=== PATIENT | female | born 1970 | race Caucasian/White ===

== ENCOUNTER → 2018-05-02 | Outpatient (CLI) | payer OTHER | LOC: M LRY 13:26 | DX: M79.671 Pain in right foot (principal) | CPT/HCPCS: 73630 ==

== ENCOUNTER → 2020-07-26 | Outpatient (CLI) | payer OTHER ==
[~2020-07-26] MED LIST: ZOLO25TA PO
--- NOTE | 2020-07-26 11:39 | ECGEPIP ---
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 Clincal correlation advised Electronically Signed on 07-26-2020 11:39:23 EST by Khurram Underwood
[2020-07-26 11:55] LABS: BASO % 0.7 % (0.0-1.0); EOS # 0.2 10^3/uL (0.0-0.5); EOS % 3.8 % (0.0-3.0); HEMATOCRIT 44.5 % (36.0-47.0); HEMOGLOBIN 14.5 g/dl (12.0-15.5); LYMPH # 1.8 10^3/uL (1.5-5.0); LYMPH % 29.2 % (24.0-44.0); MEAN CORPUSCULAR HEMOGLOBIN 29.8 pg (27.0-33.0); MEAN CORPUSCULAR HGB CONC 32.6 g/dl (32.0-36.5); MEAN CORPUSCULAR VOLUME 91.4 fl (80.0-96.0); MONO # 0.4 10^3/uL (0.0-0.8); MONO % 7.1 % (0.0-5.0); NEUTROPHILS # 3.6 10^3/uL (1.5-8.5); PLATELET COUNT, AUTOMATED 298 10^3/uL (150-450); RED BLOOD COUNT 4.87 10^6/uL (4.00-5.40); WHITE BLOOD COUNT 6.1 10^3/uL (4.0-10.0)
[2020-07-26 12:46] LABS: BLOOD UREA NITROGEN 14 MG/DL (7-18); CALCIUM LEVEL 9.2 MG/DL (8.5-10.1); CARBON DIOXIDE LEVEL 28 MEQ/L (21-32); CHLORIDE LEVEL 110 MEQ/L (98-107); CREATININE FOR GFR 0.73 MG/DL (0.55-1.30); GLOMERULAR FILTRATION RATE > 60.0 (>51); GLUCOSE, FASTING 98 MG/DL (70-100); POTASSIUM SERUM 4.5 MEQ/L (3.5-5.1); SODIUM LEVEL 144 MEQ/L (136-145)
== END ==
LOC: M LAB 11:12
PROVIDERS: ATTEND Podiatrist
DX: Z01.818 Encounter for other preprocedural examination (principal); M20.11 Hallux valgus (acquired), right foot; M79.671 Pain in right foot

== ENCOUNTER → 2020-07-27 | Outpatient (CLI) | payer OTHER | LOC: M LABSMTC 10:36 | PROVIDERS: ATTEND Anesthesiology | DX: Z01.812 Encounter for preprocedural laboratory examination (principal); Z20.822 Contact with and (suspected) exposure to COVID-19 ==

== ENCOUNTER 2020-08-01 05:59 | Day surgery (SDC) | payer OTHER ==
[~2020-08-01] VITALS: Ht 160 cm; Wt 90.3 kg
--- OUTSIDE RECORDS SUMMARY | 2020-08-01 06:02 | CCD ---
Author Author [facility] Organization [facility] Address Unknown Phone Unavailable Care Team Providers Care Petroleum Production Engineer Name Role Phone Fernando, Sara DO Unavailable Unavailable Fernando, Sara DO Unavailable Unavailable Fernando, Sara DO Unavailable Unavailable Fernando, Sara DO Unavailable Unavailable Fernando, Sara DO Unavailable Unavailable Fernando, Sara DO Unavailable Unavailable Fernando, Sara DO Unavailable Unavailable Fernando, Sara DO Unavailable Unavailable Fernando, Sara DO Unavailable Unavailable Fernando, Sara DO Unavailable Unavailable Fernando, Sara DO Unavailable Unavailable Fernando, Sara DO Unavailable Unavailable Fernando, Sara DO Unavailable Unavailable Fernando, Sara DO Unavailable Unavailable Fernando, Sara DO Unavailable Unavailable Fernando, Saar DO Unavailable Unavailable Fernando, Sara DO Unavailable Unavailable Fernando, Sara DO Unavailable Unavailable Fernando, Sara DO Unavailable Unavailable Fernando, Sara DO Unavailable Unavailable Fernando, Sara DO Unavailable Unavailable Fernando, Sara DO Unavailable Unavailable Fernando, Sara DO Unavailable Unavailable Fernando, Sara DO Unavailable Unavailable Fernando, Sara DO Unavailable Unavailable Fernando, Sara DO Unavailable Unavailable Fernando, Sara DO Unavailable Unavailable Fernando, Sara DO Unavailable Unavailable Fernando, Sara DO Unavailable Unavailable Fernando, Sara DO Unavailable Unavailable Fernando, Sara DO Unavailable Unavailable Fernando, Sara DO Unavailable Unavailable Fernando, Sara DO Unavailable Unavailable Fernando, Sara DO Unavailable Unavailable Fernando, Sara DO Unavailable Unavailable Fernando, Sara DO Unavailable Unavailable Fernando, Sara DO Unavailable Unavailable Fernando, Sara DO Unavailable Unavailable Fernando, Sara DO Unavailable Unavailable Fernando, Sara DO Unavailable Unavailable Fernando, Sara DO Unavailable Unavailable Fernando, Sara DO Unavailable Unavailable Fernando, Sara DO Unavailable Unavailable Fernando, Sara DO Unavailable Unavailable Fernando, Sara DO Unavailable Unavailable Fernando, Sara DO Unavailable Unavailable Fernando, Sara DO Unavailable Unavailable Fernando, Sara DO Unavailable Unavailable Fernando, Sara DO Unavailable Unavailable Fernando, Sara DO Unavailable Unavailable Fernando, Sara DO Unavailable Unavailable Fernando, Sara DO Unavailable Unavailable Fernando, Sara DO Unavailable Unavailable Fernando, Sara DO Unavailable Unavailable Fernando, Sara DO Unavailable Unavailable Fernando, Sara DO Unavailable Unavailable Fernando, Sara DO Unavailable Unavailable Fernando, Sara DO Unavailable Unavailable Fernando, Sraa DO Unavailable Unavailable Fernando, Sara DO Unavailable Unavailable Fernando, Sara DO Unavailable Unavailable Fernando, Sara DO Unavailable Unavailable Fernando, Sara DO Unavailable Unavailable Fernando, Sara DO Unavailable Unavailable Fernando, Sara DO Unavailable Unavailable Fernando, Sara DO Unavailable Unavailable Fernando, Sara DO Unavailable Unavailable Fernando, Sara DO Unavailable Unavailable Fernando, Sara DO Unavailable Unavailable Fernando, Sara DO Unavailable Unavailable Fernando, Sara DO Unavailable Unavailable Fernando, Sara DO Unavailable Unavailable Re-disclosure Warning The records that you are about to access may contain information from federally-assisted alcohol or drug abuse programs. If such information is present, then the following federally mandated warning applies: This information has been disclosed to you from records protected by federal confidentiality rules (42 CFR part 2). The federal rules prohibit you from making any further disclosure of this information unless further disclosure is expressly permitted by the written consent of the person to whom it pertains or as otherwise permitted by 42 CFR part 2. A general authorization for the release of medical or other information is NOT sufficient for this purpose. The Federal rules restrict any use of the information to criminally investigate or prosecute any alcohol or drug abuse patient.The records that you are about to access may contain highly sensitive health information, the redisclosure of which is protected by Article 27-F of the [facility] Public Health law. If you continue you may have access to information: Regarding HIV / AIDS; Provided by facilities licensed or operated by the [facility] Office of Mental Health; or Provided by the [facility] Office for People With Developmental Disabilities. If such information is present, then the following [facility] mandated warning applies: This information has been disclosed to you from confidential records which are protected by state law. State law prohibits you from making any further disclosure of this information without the specific written consent of the person to whom it pertains, or as otherwise permitted by law. Any unauthorized further disclosure in violation of state law may result in a fine or care home sentence or both. A general authorization for the release of medical or other information is NOT sufficient authorization for further disc losure. Encounters Encounter Providers Location Date Indications Data Source(s ) Outpatient Attender: Sara Lopes 01/20 09:20:00 AM EDT [facility] ([facility] ) Medications Medication Brand Name Start Date Product Form Dose Route Admi nistrative Instructions Pharmacy Instructions Status Indications Reaction Description Data Source(s) 5-325 mg 07/31/2020 12:00:00 AM EST tablet 20 TAKE 1 OR 2 TABLETS BY MOUTH EVERY 6 HOURS POST OP PAIN MAXIMUM DAILY DOSE = 6 TABLETS TAKE 1 OR 2 TABLETS BY MOUTH EVERY 6 HOURS POST OP PAIN MAXIMUM DAILY DOSE = 6 TABLETS SOLD: 07/31/2020 [facility] 0.05 % 05/23/2020 12:00:00 AM EST solution 50 APPLY TO DRY SCALP TWICE WEEKLY LET SIT FOR 15 MIN THEN RINSE APPLY TO DRY SCALP TWICE WEEKLY LET SIT FOR 15 MIN THEN RINSE SOLD: 05/25/2020 [facility] 25 mg 02/02/2019 12:00:00 AM EDT tablet 30 TAKE ONE TABLET BY MOUTH ONCE DAILY TAKE ONE TABLET BY MOUTH ONCE DAILY SOLD: 06/15/2019 [facility] 25 mg 02/02/2019 12:00:00 AM EDT tablet 30 TAKE ONE TABLET BY MOUTH ONCE DAILY TAKE ONE TABLET BY MOUTH ONCE DAILY SOLD: 07/19/2019 [facility] Insurance Providers Payer name Policy type / Coverage type Policy ID Covered green party ID Covered green party's relationship to scott Policy Scott Plan Information [facility] [id number] SP [id number] [facility] [id number] SP [id number] UMR O [id number] S [id number] [place] (Old) Medigap Part B [id number] Self [id number] Umr (New [place]) Commercial [id number] Self [id number] [employer] (Old) Medigap Part B [id number] Self [id number] [facility] [id number] SP [id number] UMR O [id number] S [id number] ANSI-Commercial [id number] [employer] (Old) Commercial [id number] Self [id number] [employer] PPO O [id number] S [id number] [place] Ppo Commercial [id number] Self [id number] [place] Ppo Commercial [id number] Self [id number] [employer] [id number] SP [id number] Surgeries/Procedures Procedure Description Date Indications Data Source(s) Mammogram 05/21/2020 12:00:00 AM EST [facility] ([facility]) Results ID Date Data Source [id number] 07/27/2020 10:00:00 AM EST [facility] Name Value Range Interpretation Code Description Data Adia rce(s) Supporting Document(s) SARS coronavirus 2 RNA Not Detected [facility] This lab was ordered by [facility] and reported by [facility]. ID Date Data Source [id number] 07/26/2020 11:40:00 AM EST [facility] ([facility]) Name Value Range Interpretation Code Description Data Adia rce(s) Supporting Document(s) Glucose, Fasting 98 mg/dL 70-100 [facility] ([facility]) Creatinine For GFR 0.73 mg/dL 0.55-1.30 [facility] ([facility]) Glomerular Filtration Rate Laboratory test [facility] <content>Units are mL/min/1.73 m2</content>
<content></content>
<content>Chronic Kidney Disease Staging per NKF:</content>
<content></content>
<content>Stage I & II GFR >=60 Normal to Mildly Decreased</content>
<content>Stage III GFR 30-59 Moderately Decreased</content>
<content>Stage IV GFR 15-29 Severely Decreased</content>
<content>Stage V GFR <15 Very Little GFR Left</content>
<content>ESRD GFR <15 [address] AIDE</content>
<content></content> Blood Urea Nitrogen 14 mg/dL 7-18 [facility] ([facility]) Potassium Serum 4.5 meq/L 3.5-5.1 [facility] Sodium Level 144 meq/L 136-145 [facility] ([facility]) Anion Gap 6 meq/L 8-16 [facility]) Chloride Level 110 meq/L 98-107 [facility] ([facility]) Carbon Dioxide Level 28 meq/L 21-32 [facility] ([facility]) Calcium Level 9.2 mg/dL 8.5-10.1 [facility] ([facility]) ID Date Data Source [id number] 07/26/2020 11:40:00 AM EST [facility] ([facility]) Name Value Range Interpretation Code Description Data Adia rce(s) Supporting Document(s) White Blood Count 6.1 10 4.0-10.0 [facility] ([facility]) Hemoglobin 14.5 g/dL 12.0-15.5 [facility] Red Blood Count 4.87 10 4.00-5.40 [facility] ([facility]) Hematocrit 44.5 % 36.0-47.0 [facility]) Mean Corpuscular Volume 91.4 fl 80.0-96.0 [facility] ([facility]) Mean Corpuscular HGB Conc 32.6 g/dL 32.0-36.5 MEDE NT ([facility]) Mean Corpuscular Hemoglobin 29.8 pg 27.0-33.0 ME DENT ([facility]) Red Cell Distribution Width 12.8 % 11.5-14.5 ME [facility] ([facility]) Platelet Count, Automated 298 10 150-450 MEDE NT ([facility]) Lymph % 29.2 % 24.0-44.0 [facility]) Neutrophils % 59.0 % 36.0-66.0 [facility] ([facility]) Eos % 3.8 % 0.0-3.0 [facility]) Baso % 0.7 % 0.0-1.0 [facility]) [place] % 7.1 % 0.0-5.0 [facility]) Nucleated Red Blood Cell % 0.0 % 0-0 MED ENT ([facility]) Immature Granulocyte % 0.2 % 0-3.0 [facility] ([facility]) Neutrophils # 3.6 10 1.5-8.5 [facility]) Lymph # 1.8 10 1.5-5.0 [facility]) Baso # 0.0 10 0.0-0.2 [facility]) [place] # 0.4 10 0.0-0.8 [facility]) Eos # 0.2 10 0.0-0.5 [facility]) ID Date Data Source [id number] 05/21/2020 12:00:00 AM EST [facility] Sara King DO Patient Name: JEWELS KEARNS [id number] Date of : 1970[address] Date of Exam: 05/21/2020ABIGAIL Lucio [id number]#: Fax: [phone] EXAM: MAMMO SCREENING WITH CADCLINICAL INFORMATION: Screening.Based on the personal and family history information your patient suppliedat the time of imaging, her lifetime risk of breast cancer estimated by theTyrer-Cuzick model is 13.4%. Given that this patient has less than 20% TCrisk score, no further medical management is currently recommended at thistime.The patient has previously received genetic testing.Digital screening (2D) mammography was performed bilaterally in the CC andMLO projections. Additionally, breast tomosynthesis (3D mammography) wasperformed bilaterally in the CC and MLO projections. Today's exam wascompared to the prior exam(s).By history, the patient has no complaints of a palpable breast abnormalityor other significant breast complaints.The patient states last clinical breast exam was some time during September.The breasts are unchanged in size and shape. There are no ene-soft tissuedensities or spiculated masses. There is no internal architecturaldistortion. There are no suspicious ene-calcific clusters. Skinthickening or nipple retraction is not present. Benign calcifications areagain seen bilaterally.The Volpara volumetric breast density category is B, there are scatteredareas of fibroglandular density.IMPRESSION:BI-RADS Category 2 - Benign Finding(s). Stable mammogram. There is noevidence of malignant alteration of the breasts. Followup examinationrecommended in one year.This mammogram was read with the assistance of ReadOz, an FDAapproved computer aided detection system for mammography.Negative x-ray reports should not delay surgical consultation if a dominantor clinically suspicious mass is present.Not all breast cancers can be identified by mammography. Therefore, werecommend that you continue to perform regular breast self-examination andphysical examination and then promptly contact your physician of anyconcerns or changes.Adenosis and dense breasts may obscure an underlying neoplasm.TAYLOR Vickers/Rip you for referring JEWELS KEARNS to our office.Electronically Signed - YUDELKA BARILLAS DO 05/22/20 13:52 Name Value Range Interpretation Code Description Data Adia rce(s) Supporting Document(s) ID Date Data Source [id number] 01/21/2020 09:46:00 AM EDT [facility] ([facility]) Name Value Range Interpretation Code Description Data Adia rce(s) Supporting Document(s) Triglyceride [Mass/volume] in Serum or Plasma 48 mg/dL 30-150 [facility] ([facility]) Cholesterol [Mass/volume] in Serum or Plasma 249 mg/dL 131-200 [facility] ([facility]) Cholesterol in HDL [Mass/volume] in Serum or Plasma 132 mg/dL 35-60 [facility] ([facility]) Cholesterol in LDL [Mass/volume] in Serum or Plasma by calcu lation 107 CALC 50-159 [facility] ([facility]) ID Date Data Source [id number] 01/21/2020 09:46:00 AM EDT [facility] ([facility]) Name Value Range Interpretation Code Description Data Adia rce(s) Supporting Document(s) Glucose [Mass/volume] in Serum or Plasma 91 mg/dL 74-99 [facility] ([facility]) 100-125 mg/dL PRE-DIABETES/FASTING >126 mg/dL DIABETES/FASTING Urea nitrogen [Mass/volume] in Serum or Plasma 12 mg/dL 7-18 [facility] ([facility]) Sodium [Moles/volume] in Serum or Plasma 142 meq/L 136-145 [facility] ([facility]) Creatinine 0.8 mg/dL 0.6-1.3 [facility] Potassium [Moles/volume] in Serum or Plasma 4.4 meq/L 3.5-5.1 [facility] ([facility]) Chloride [Moles/volume] in Serum or Plasma 104 meq/L 98-107 [facility] ([facility]) Glomerular filtration rate/1.73 sq M pre dicted among non-blacks [Volume Rate/Area] in Serum or Plasma by Creatinine-based formula (MDRD) Laboratory test result [facility] ([facility] ) Carbon dioxide, total [Moles/volume] in Serum or Plasma 28 meq/L 21 -32 [facility] ([facility]) Calcium [Mass/volume] in Serum or Plasma 8.7 mg/dL 8.5-10.1 [facility] Glomerular filtration rate/1.73 sq M pre dicted among blacks [Volume Rate/Area] in Serum or Plasma by Creatinine-based formula (MDRD) Laboratory test result [facility] ([facility]) <content>CHRONIC KIDNEY DISEASE STAGING PER NKF</content>
<content></content>
<content>STAGE I & II GFR >= 60 NORMAL TO MILDLY DECREASED</content>
<content>STAGE III GFR 30-59 MODERATELY DECREASED</content>
<content>STAGE IV GFR 15-29 SEVERELY DECREASED</content>
<content>STAGE V GFR <15 VERY LITTLE GFR LEFT</content>
<content>ESRD GFR <15 ON ROUTE AIDE</content>
<content></content> ID Date Data Source [id number] 01/21/2020 09:46:00 AM EDT [facility] Name Value Range Interpretation Code Description Data Adia rce(s) Supporting Document(s) Hemoglobin A1c/Hemoglobin.total in Blood 5.5 g/dL 4.8-5.6 [facility] ([facility]) Lab Result Notes: Pre-Diabetes 5.7 - 6.4 % Diabetes = or > 6.5% Glucose mean value [Mass/volume] in Blood Estimated fr om glycated hemoglobin 111 mg/dL 60-110 [facility] ([facility] ) ID Date Data Source [id number] 01/21/2020 09:46:[address] [facility]) Name Value Range Interpretation Code Description Data Adia rce(s) Supporting Document(s) Leukocytes [#/volume] in Blood by Automated count 6.6 x10*3/UL 4.1-10 .9 [facility] Hemoglobin [Mass/volume] in Blood 14.6 g/dL 12.0-18.0 [facility] Erythrocytes [#/volume] in Blood by Automated count 4.78 x10*6/UL 4.2 0-6.30 [facility] Hematocrit [Volume Fraction] of Blood by Automated count 42.9 % 3 7.0-51.0 [facility] ([facility]) MCV 89.7 fL 80.0-97.0 [facility] ([facility]) MCHC 34.1 g/dL 31.0-38.0 [facility] ([facility]) MCH 30.6 pg 26.0-32.0 [facility] ([facility]) Erythrocyte distribution width [Ratio] by Automated count 13.0 % 11.6-13.7 [facility] ([facility]) Lymph % 26.5 % 10.0-58.5 [facility] ([facility]) Mid % 6.0 % 1.7-9.3 [facility] ([facility]) Platelets [#/volume] in Blood by Automated count 295 x10*3/UL 140-440 [facility] MPV 8.4 FL 7.8-11.0 [facility] ([facility]) Mid # 0.5 x10*3/UL 0.1-0.6 [facility] ([facility]) Lymph # 1.7 x10*3/UL 0.6-4.1 [facility] ([facility]) Neut % 67.5 % 37.0-92.0 [facility] ([facility]) Neut # 4.4 x10*3/UL 2.0-7.8 [facility] ([facility]) ID Date Data Source [id number] 01/21/2020 09:46:00 AM EDT [facility] Name Value Range Interpretation Code Description Data Adia rce(s) Supporting Document(s) Hemoglobin A1c/Hemoglobin.total in Blood [facility] Procedure Vital Signs ID Date Data Source UNK Name Value Range Interpretation Code Description Data Source(s) Body mass index (BMI) [Ratio] 35.1 kg/m2 35.1 k g/m2 [facility] Oxygen saturation in Arterial blood by Pulse oximetry 97 % 97 % [facility] ([facility]) RM Air Body weight 198.00 [lb_av] 198.00 [lb_av] MEDEN T ([facility]) Body height 63 [in_i] 63 [in_i] JHONATAN ([facility]) 5'3" Heart rate 77 /min 77 /min JHONATAN ([facility]) Diastolic blood pressure 78 mm[Hg] 78 mm[Hg] J[facility]ONATAN ([facility]) Systolic blood pressure 118 mm[Hg] 118 mm[Hg] M SHANA ([facility])
--- OUTSIDE RECORDS SUMMARY | 2020-08-01 06:02 | CCD | Continuity of Care Document ---
Author Organization Unknown Address Unknown Phone Unavailable Care Team Providers Care Chauffeur [employer] Name Role Phone Sara King DO AUTM Unavailable Problems Active Problems Provider Date Premenstrual dysphoric disorder Sara King DO Onset: 1 08/28/2013 Social History Type Date Description Comments Sex Unknown ETOH Use Occasionally consumes alcohol Tobacco Use Start: Unknown End: Unknown Patient is a former smoker smoked x 15 yrs, smoked 1 pk q3 days, quit at age 29 Allergies, Adverse Reactions, Alerts Description No Known Drug Allergies Medications Active Medications SIG Qnty Indications Ordering Provide r Date Vitamin B12 100mcg Tablets 2 by mouth every day Sara King DO 10/06/2018 Vitamin C 500mg Capsules every day (winter months) Sara King DO 05/04/2016 Sertraline HCL 25mg Tablets take one tablet by mouth once daily 90tabs Sara King DO 06/27 Multivitamins Capsules 1 by mouth every day Sara King DO 04/01/2014 Viactiv [id number] Chewt abs 1 by mouth twice a day Sara King DO 04/01/2014 Immunizations CPT Code Status Date Vaccine Lot # [id number] Given 04/25/2017 Influenza Vaccin e Quadrivalent Preser/Antibiotic Free Im Use [id number] Given 05/04/2016 Fluvirin Virus Vaccine [id number] Given 05/28/2010 Influenza Virus Vaccine Vital Signs Date Vital Result Comment 01/21/2020 9:09am BP Systolic 118 mmHg BP Diastolic 78 mmHg Heart Rate 77 /min Height 63 inches 5'3" Weight 198.00 lb O2 % BldC Oximetry 97 % RM Air BMI (Body Mass Index) 35.1 kg/m2 03/13/2019 12:57pm BP Systolic 108 mmHg RT Arm BP Diastolic 70 mmHg RT Arm Heart Rate 76 /min Height 63 inches 5'3" Weight 184.25 lb BMI (Body Mass Index) 32.6 kg/m2 Results Test Acquired Date Facility Test Result H/L Range Note CBC With Differential 07/26/[address] [address] [phone] White Blood Count 6.1 10 Normal 4.0-10.0 Red Blood Count 4.87 10 Normal 4.00-5.40 Hemoglobin 14.5 g/dL Normal 12.0-15.5 Hematocrit 44.5 % Normal 36.0-47.0 Mean Corpuscular Volume 91.4 fl Normal 80.0-96.0 Mean Corpuscular Hemoglobin 29.8 pg Normal 27.0-33.0 Mean Corpuscular HGB Conc 32.6 g/dL Normal 32.0-36.5 Red Cell Distribution Width 12.8 % Normal 11.5-14.5 Platelet Count, Automated 298 10 Normal 150-450 Neutrophils % 59.0 % Normal 36.0-66.0 Lymph % 29.2 % Normal 24.0-44.0 [place] % 7.1 % High 0.0-5.0 Eos % 3.8 % High 0.0-3.0 Baso % 0.7 % Normal 0.0-1.0 Immature Granulocyte % 0.2 % Normal 0-3.0 Nucleated Red Blood Cell % 0.0 % Normal 0-0 Neutrophils # 3.6 10 Normal 1.5-8.5 Lymph # 1.8 10 Normal 1.5-5.0 [place] # 0.4 10 Normal 0.0-0.8 Eos # 0.2 10 Normal 0.0-0.5 Baso # 0.0 10 Normal 0.0-0.2 Basic Metabolic Profile 07/26/[address] [address] [phone] Glucose, Fasting 98 mg/dL Normal 70-100 Blood Urea Nitrogen 14 mg/dL Normal 7-18 Creatinine For GFR 0.73 mg/dL Normal 0.55-1.30 Glomerular Filtration Rate > 60.0 Normal >51 1 Sodium Level 144 mEq/L Normal 136-145 Potassium Serum 4.5 mEq/L Normal 3.5-5.1 Chloride Level 110 mEq/L High 98-107 Carbon Dioxide Level 28 mEq/L Normal 21-32 Anion Gap 6 mEq/L Low 8-16 Calcium Level 9.2 mg/dL Normal 8.5-10.1 1 Units are mL/min/1.73 m2 Chronic Kidney Disease Staging per NKF: Stage I & II GFR >=60 Normal to Mildly Decreased Stage III GFR 30-59 Moderately Decreased Stage IV GFR 15-29 Severely Decreased Stage V GFR <15 Very Little GFR Left ESRD GFR <15 on LIME MIXER Procedures Date Code Description Status 05/21/2020 [id number] Mammogram Completed 05/19/2019 [id number] Mammogram Completed 05/17/2018 [id number] Mammogram Completed 05/12/2017 [id number] Mammogram Completed 05/11/2016 [id number] Mammogram Completed 04/22/2015 [id number] Mammogram Completed 04/09/2015 [id number] Mammogram Completed 04/08/2014 [id number] Mammogram Completed 07/13/2011 [id number] Mammogram Completed 03/03/2010 [id number] Mammogram Completed Medical Devices Description No Information Available Encounters Description No Information Available Assessments Description No Information Available Plan of Treatment Future Appointment(s):* 08/15/2020 9:00 am - Sara King DO at [facility] 01/21/2020 - Sara King DO* N94.3 Premenstrual tension syndrome * R73.01 Impaired fasting glucose * E78.5 Hyperlipidemia, unspecified * All * Comments:* Will see her back for a follow up visit as scheduled Functional Status Description No Information Available Mental Status Description No Information Available Referrals Description No Information Available
[2020-08-01] MEDS ORDERED: LIDOCAINE 2% MDV 20ML VIAL As Ordered ONE (06:46)
[2020-08-01] MEDS ORDERED: BUPIVACAINE HCL 0.5% 30 ML VIAL As Ordered ONE (06:46)
[2020-08-01] MEDS ORDERED: dexameTHASONE 4 MG/ML 1ML VIAL (J1100 PER 1MG) As Ordered ONE ×2 (06:47→07:11)
[2020-08-01] MEDS ORDERED: BACITRACIN PWD 50,000 UNITS VIAL As Ordered ONE (06:47)
[2020-08-01] MEDS ORDERED: NEOSPORIN GU IRRIG 20 ML VIAL As Ordered ONE (06:47)
[2020-08-01] MEDS ORDERED: LR 1,000 ML IV ONE (07:00)
[2020-08-01] MEDS ORDERED: ceFAZolin SOD 2 GM in IV 1 EA IV ONE (07:00)
[2020-08-01] MEDS ORDERED: LIDOCAINE 2% 100MG/5ML SDV (FOR ANES.) As Ordered ONE (07:11)
[2020-08-01] MEDS ORDERED: ONDANSETRON 4MG/2ML VIAL As Ordered ONE (07:11)
[2020-08-01] MEDS ORDERED: fentaNYL 100 MCG/2 ML INJECTION (J3010) As Ordered ONE (07:12)
[2020-08-01] MEDS ORDERED: propofoL 500 MG/50 ML VIAL As Ordered ONE (07:12)
[2020-08-01] MEDS ORDERED: MIDAZOLAM INJ 2MG/2ML VIAL (J2250 PER 1MG) As Ordered ONE (07:12)
--- NOTE | 2020-08-01 09:01 | REP ---
INDICATION: POSTOP BUNIONECTOMY COMPARISON: None. TECHNIQUE: Portable AP, lateral, oblique views. FINDINGS: Images demonstrate the patient to be status post procedure involving the 1st metatarsal bone. Overlying postsurgical changes noted. IMPRESSION: Postsurgical changes involving the 1st metatarsal bone. <Electronically signed by Ashvin Palomino > 08/01/20 [id number]
[2020-08-01 09:15] VITALS: BP 121/73
[2020-08-01] MEDS ORDERED: LR 1,000 ML IV SCH (09:15)
[2020-08-01] MEDS ORDERED: PERCOCET 5MG/325MG TAB PO PRN (09:15)
[2020-08-01] MEDS ORDERED: ONDANSETRON 4MG/2ML VIAL IV PRN (09:15)
[2020-08-01] MEDS ORDERED: METOCLOPRAMIDE INJ 10MG/2ML VIAL (J2765 PER 1) IV PRN (09:15)
[2020-08-01] MEDS ORDERED: fentaNYL 100 MCG/2 ML INJECTION (J3010) IV PRN (09:15)
--- NOTE | 2020-08-01 10:44 | RO ---
OPERATIVE NOTE DATE OF OPERATION: 08/01/2020 PREOPERATIVE DIAGNOSIS: Hallux valgus and metatarsus primus varus deformity right foot. POSTOPERATIVE DIAGNOSIS: Hallux valgus and metatarsus primus varus deformity right foot. PROCEDURES PERFORMED: Eliane bunionectomy, internal screw fixation 3.0 mm x 20 mm x1. SURGEON: Khurram Douglas DPM RESIDENT CARE SUPERVISOR: None. ANESTHESIA: Local MAC. HEMOSTASIS: Ankle pneumatic tourniquet at 200 mmHg for 31 minutes right ankle. HARDWARE UTILIZED: Arthrex headless 3.0 x 20 mm compression screw. IRRIGATION: Dilute Bacitracin, Neomycin and Polymyxin B solution. DESCRIPTION OF PROCEDURE: On 08/01/2020 this 50-year-old white female was taken from her hospital room to the operating room and placed on the operating table in the supine position. Following induction of IV sedation and local regional anesthesia the right lower extremity was prepped and draped in usual aseptic manner. Sterile draping was completed and the following procedure was performed: ELIANE BUNIONECTOMY AND INTERNAL SCREW FIXATION 3.0 x 20 mm x1 right foot: Attention was directed to the patient's right foot. There was noted to be a moderate hallux valgus deformity. At this time a 6 cm incision was placed over the 1st metatarsophalangeal joint medial to the extensor tendon. The incision was deepened through subcutaneous tissues and all coursing venous tributaries were identified, underscored, clamped, cut, ligated or electrocoagulated as necessary. A linear capsulotomy was performed in the same plane as the original skin incision. The capsular and periosteal structures were dissected free in one continuous layer dorsally, medially and laterally thus creating a capsular periosteal type envelope. This allowed me to view the medial eminence of the 1st metatarsal which was osteotomized from distal to proximal [id number] exiting medial to the sesamoidal groove. Attention was then directed into the 1st intermetatarsal space where dissection was carried down to the level of the conjoined tendon which was sharply dissected free off the fibular sesamoid. This allowed mobilization of the sesamoids. Attention was directed to the medial surface of the 1st metatarsal where V-shaped osteotomy was performed with long plantar and short dorsal limb. Upon creation of this osteotomy the capital fragment was transposed approximately 40% of the width of the shaft of the 1st metatarsal and fixated with 3.0 x 20 mm headless compression screw. This did not penetrate the inferior cartilage. Osteotomy was noted to be stable in all three cardinal planes. The redundant cortical spike was osteotomized from dorsal to plantar [id number] and extirpated from the wound in toto. Medial surface was rasped with handheld rasp to smooth contour. The wound was flushed with copious amounts of dilute Bacitracin, Neomycin, and Polymyxin B solution. Attention was directed toward closure of the capsular structures coapted and maintained utilizing 3-0 Monocryl in simple interrupted type fashion. Subcutaneous tissues were coapted and maintained with 4-0 Monocryl in simple interrupted type fashion. Skin incision was coapted and maintained utilizing 5-0 Monocryl in continuous subcuticular type fashion. This was reinforced with Steri-Strips. Following the completion of the surgical procedure 4 mg of Dexamethasone sodium phosphate and 1 mL of 0.5% Marcaine was instilled proximal to the surgical site. Attention was directed toward bandage. Sterile compression bandage was applied consisting of Adaptic, 4 x 4s, 4 x 4 splint, Demetra, Kerlix and Coban. Ankle pneumatic tourniquet was rapidly deflated, instantaneous capillary filling time was noted digits 1 through 5 of the patient's right foot. The patient having apparently tolerated the surgical procedure well was taken from the OR to the recovery room for further monitoring by anesthesia department. Postoperative instructions were given upon discharge. The patient is to be nonweightbearing on right side. Her questions were answered.
== END 2020-08-01 09:55 | disposition home or self-care (01) ==
LOC: M SDC 05:59
PROVIDERS: ATTEND Podiatrist
DX: M20.11 Hallux valgus (acquired), right foot (principal); F43.10 Post-traumatic stress disorder, unspecified; F41.9 Anxiety disorder, unspecified; F32.9 Major depressive disorder, single episode, unspecified; Z79.899 Other long term (current) drug therapy
CPT/HCPCS: 28296; 73630; 88300; 97116; 97161; C1713; J0690; J1100; J2250; J2405; J3010

== ENCOUNTER → 2021-10-09 | Outpatient (CLI) | payer OTHER | LOC: M WHC 14:58 | PROVIDERS: ATTEND Internal Medicine | DX: Z12.31 Encounter for screening mammogram for malignant neoplasm of breast (principal); Z78.0 Asymptomatic menopausal state; Z80.3 Family history of malignant neoplasm of breast ==

== ENCOUNTER → 2022-11-19 | Outpatient (CLI) | payer OTHER | LOC: M WHC 14:24 | PROVIDERS: ATTEND Internal Medicine | DX: Z12.31 Encounter for screening mammogram for malignant neoplasm of breast (principal) ==

== ENCOUNTER → 2023-11-23 | Outpatient (CLI) | payer OTHER | LOC: M WHC 12:37 | PROVIDERS: ATTEND Internal Medicine | DX: Z12.31 Encounter for screening mammogram for malignant neoplasm of breast (principal) ==

== ENCOUNTER → 2024-11-23 | Outpatient (CLI) | payer OTHER | LOC: M WHC 12:42 | PROVIDERS: ATTEND Internal Medicine | DX: Z12.31 Encounter for screening mammogram for malignant neoplasm of breast (principal); R92.313 Mammographic fatty tissue density, bilateral breasts ==

== ENCOUNTER → 2025-03-11 | Outpatient (CLI) | payer OTHER | LOC: M WUC 15:47 | PROVIDERS: ATTEND Nurse Practitioner Family | DX: M25.572 Pain in left ankle and joints of left foot (principal); M19.072 Primary osteoarthritis, left ankle and foot ==